=== PATIENT | male | born 1975 | race Caucasian/White ===

== ENCOUNTER 2017-03-05 18:02 | Emergency (ER) | payer SELFPAY ==
[2017-03-05] MEDS ORDERED: ACETAMINOPHEN 325 MG TABLET (FP) PO ONE (18:14)
--- NOTE | 2017-03-05 18:16 | PDOC ---
Rapid Medical Evaluation Time Seen by Provider: 03/05/17 18:11 Medical Evaluation: 03/05/17 18:11 The patient presents with a chief complaint of: Fall from 6 feet ladder on Sunday. Landed on L shoulder. No head pain, no LOC at time of fall. Denies hematuria I have performed a brief in-person evaluation of this patient; Pertinent physical exam findings (+) drop arm test. TTP of the L shoulder, GH joint intact I have ordered the following: L shoulder x-ray The patient will proceed to the ED for further evaluation.
[2017-03-05 18:17] VITALS: BP 165/114; PULSE 91; TEMP 97.9; BMI 33.9
[2017-03-05] MEDS ORDERED: ACETAMINOPHEN 325 MG TABLET (FP) ONE (18:56)
--- NOTE | 2017-03-05 19:00 | PDOC ---
History of Present Illness - General Chief Complaint: Injury Stated Complaint: SHOULDER PAIN Time Seen by Provider: 03/05/17 18:11 History Source: Patient Exam Limitations: No Limitations - History of Present Illness Initial Comments: 03/05/17 18:57 42-year-old male right hand dominant with no medical history presents to the emergency department complaining of left shoulder pain after he slipped and fell onto his left shoulder yesterday. Pain is described as 6/10 dull nonradiating intermittent discomfort. The pain is exacerbated on movement and alleviated minimally at rest. Patient denies any head, back or neck pains. Patient denies dizziness, headache, lightheadedness, facial pains, neck stiffness, chest pain, shortness of breath, abdominal pains, extremity numbness or tingling sensation. 03/05/17 19:35 Occurred: reports: yesterday Pain Location: reports: upper extremity (left shoulder) Past History - Past Medical History Allergies/Adverse Reactions: Allergies Allergy/AdvReac Type Severity Reaction Status Date / Time No Known Allergies Allergy Verified 03/05/17 18:11 Home Medications: Ambulatory Orders NK [No Known Home Medication] 03/05/17 COPD: No - Suicide/Smoking/Psychosocial Hx Smoking History: Never smoked Have you smoked in the past 12 months: No Information on smoking cessation initiated: No Hx Alcohol Use: No Drug/Substance Use Hx: No Review of Systems - Review of Systems Able to Perform ROS?: Yes Comments:: 03/05/17 18:57 CONSTITUTIONAL: Absent: fever, chills, diaphoresis, generalized weakness, malaise, loss of appetite HEENT: Absent: rhinorrhea, nasal congestion, throat pain, throat swelling, difficulty swallowing, mouth swelling, ear pain, eye pain, visual Changes CARDIOVASCULAR: Absent: chest pain, loss of consciousness, palpitations, irregular heart rate, peripheral edema RESPIRATORY: Absent: cough, shortness of breath, dyspnea with exertion, orthopnea, wheezing, stridor, hemoptysis MUSCULOSKELETAL: Absent: myalgia, arthralgia, joint swelling SKIN: Absent: rash, itching, pallor Left shoulder PAIN denies ext numbness/tingling sensation Is the patient limited Romanian proficient: No *Physical Exam - Vital Signs Last Vital Signs Temp Pulse Resp BP Pulse Ox 97.9 F 91 H 18 165/114 100 03/05/17 18:11 03/05/17 18:11 03/05/17 18:11 03/05/17 18:11 03/05/17 18:11 - Physical Exam Comments: 03/05/17 18:57 GENERAL: Well developed, well nourished. Awake and alert. No acute distress. HEENT: Normocephalic, atraumatic. PERRLA, EOMI. No conjunctival pallor. Sclera are non- icteric. Moist mucous membranes. Oropharynx is clear. NECK: Supple. Full ROM. No JVD. Carotid pulses 2+ and symmetric, without bruits. No thyromegaly. No lymphadenopathy. CARDIOVASCULAR: Regular rate and rhythm. No murmurs, rubs, or gallops. Distal pulses are 2+ and symmetric. MUSCULOSKELETAL (Excluding left shoulder) Normal range of motion at all joints. No bony deformities or tenderness. No CVA tenderness. EXTREMITIES: No cyanosis. No clubbing. No edema. No calf tenderness. SKIN: Warm and dry. Normal capillary refill. No rashes. No jaundice. Left shoulder Decreased R.O.M./pain +drop arm +pain on palp +pain on resisting/ext rotation Neg obvious deformities Left elbow Neg obv def Neg pain on palp F.R.O.M. ED Treatment Course - RADIOLOGY Radiograph Interpretation: 03/05/17 18:57 Xray Left shoulder: *DC/Admit/Observation/Transfer Diagnosis at time of Disposition: Rotator cuff injury Qualifiers: Encounter type: initial encounter Laterality: left Qualified Code(s): S46.002A - Unspecified injury of muscle(s) and tendon(s) of the rotator cuff of left shoulder, initial encounter - Discharge Dispostion Disposition: HOME Condition at time of disposition: Stable Admit: No - Referrals Referrals: Parmjit Ann MD [Staff Physician] - - Patient Instructions Printed Discharge Instructions: How to Use a Sling Additional Instructions: Ice; 20 mins on alternating with 20 mins off for 48 hours while awake. Rest Elevate Follow up with your orthopedic surgeon or the one listed on the discharge form. Return to the ER for severe/persistent/worsening symptoms, extremity numbness/ tingling sensation. - Post Discharge Activity Forms/Work/School Notes: Back to Work
== END 2017-03-05 19:42 | disposition home or self-care (01) ==
LOC: JER 18:02 → JERFT 18:02
DX: S46.002A Unspecified injury of muscle(s) and tendon(s) of the rotator cuff of left shoulder, initial encounter (principal); W01.0XXA Fall on same level from slipping, tripping and stumbling without subsequent striking against object, initial encounter; Y93.89 Activity, other specified; Y92.9 Unspecified place or not applicable
CPT/HCPCS: 73030-TC-LT; 99281-25